=== PATIENT | female | born 1975 | race African-American/Black ===

== ENCOUNTER 2024-04-14 12:17 | Inpatient (IN) | payer MEDICAID ==
[~2024-04-14] VITALS: Ht 167.6 cm; Wt 50.3 kg
[2024-04-14] VITALS (13 sets, daily range): BP systolic 86–101; BP diastolic 51–80; TEMP 97.6–99; O2SAT 99–100
[2024-04-14] MEDS: IV NS 0.9% 1,000 ML BAG IV ONE (12:39)
[2024-04-14 13:18] LABS: LYMPHOCYTES # (AUTO) 0.6 K/uL (0.8-4.8); MEAN CORPUSCULAR HEMOGLOBIN 14 PG (26.0-33.0); MONOCYTES # (AUTO) 0.2 K/uL (0.1-1.30); NEUTROPHILS # (AUTO) 1.5 K/uL (1.8-8.9); WHITE BLOOD COUNT (AUTO) 2.4 K/uL (4.3-11.0)
[2024-04-14] MEDS ORDERED: DOCU100T2 PO (13:20)
[2024-04-14] MEDS ORDERED: MULT-213 PO (13:20)
[2024-04-14] MEDS ORDERED: ACET-868 PO (13:20)
[2024-04-14] MEDS ORDERED: BISA10SU11 RC (13:20)
[2024-04-14] MEDS ORDERED: NA P133E RC (13:20)
[2024-04-14] MEDS ORDERED: ACET-2030 PO (13:20)
[2024-04-14] MEDS ORDERED: GABA-532 PO (13:20)
[2024-04-14] MEDS ORDERED: SENN-261 PO (13:20)
[2024-04-14] MEDS ORDERED: MAGN400O6 PO (13:20)
[2024-04-14 13:22] LABS: BASOPHILS % (AUTO) 1.1 % (0.0-2.0); EOSINOPHILS % (AUTO) 1.5 % (0.0-6.0); LYMPHOCYTES % (AUTO) 24.9 % (20.0-44.0); MEAN CORPUSCULAR HGB CONC 26 g/dl (31.0-36.0); MEAN CORPUSCULAR VOLUME 54 fL (82-100); MONOCYTES % (AUTO) 8.6 % (2.0-12.0); NEUTROPHILS % (AUTO) 63.9 % (43.0-81.0); PLATELET COUNT (AUTO) 314 K/uL (150-450); RED BLOOD CELL COUNT(AUTO) 2.01 MIL/uL (4.0-5.2); RED CELL DISTRIBUTION WIDTH 21.6 % (11.5-15.0)
[2024-04-14 13:25] LABS: HEMOGLOBIN 2.9 g/dL (11.5-14.8)
[2024-04-14 13:26] LABS: HEMATOCRIT 11 % (33-45)
[2024-04-14 13:30] LABS: INR 0.97 (0.91-1.10)
[2024-04-14 13:31] LABS: ALBUMIN 2.9 g/dL (3.4-5.0); BILIRUBIN,DIRECT 0.1 mg/dL (0.0-0.2); BILIRUBIN,TOTAL 0.3 mg/dL (0.2-1.0); CALCIUM, SERUM 8.5 mg/dL (8.5-10.1); CREATININE 0.6 mg/dL (0.6-1.3); POTASSIUM 3.5 mmol/L (3.5-5.1); TOTAL PROTEIN, SERUM 6.8 g/dL (6.4-8.2)
[2024-04-14 13:32] LABS: PARTIAL THROMBOPLASTIN TIME 18.6 SEC (24.3-34.3)
[2024-04-14 13:51] LABS: ANISOCYTOSIS 1+; BASOPHILS % (MANUAL) 0 % (0.0-2.0); EOSINOPHILS % (MANUAL) 2 % (0-4); HYPOCHROMASIA 3+; LYMPHOCYTES % (MANUAL) 28 % (16-48); MONOCYTES % (MANUAL) 4 % (0-11.0); NEUTROPHILS % (MANUAL) 66 (42-76); OVALOCYTES 1+; PLATELET ESTIMATE ADEQUATE
[2024-04-14] MEDS ORDERED: MAGNESIUM HYDROXIDE 30 ML UDC PO PRN (14:00)
[2024-04-14] MEDS ORDERED: MAG HYDROX/AL HYDROX/SIMETH 30 ML UDC PO PRN (14:00)
[2024-04-14] MEDS ORDERED: ONDANSETRON HCL/PF 4 MG/2 ML VIAL IVP PRN (14:00)
[2024-04-14] MEDS ORDERED: ACETAMINOPHEN 325 MG TABLET PO PRN (14:00)
[2024-04-14] MEDS ORDERED: Z GUARD REMEDY 4 OZ OINT TP PRN (17:00)
[2024-04-14] MEDS: GABAPENTIN 100 MG CAPSULE PO SCH (17:00)
[2024-04-14] MEDS: DOCUSATE SODIUM 100 MG CAPSULE PO SCH (17:00)
[2024-04-14] MEDS ORDERED: NOREPINEPHRINE 8 MG in IV D5W 242 ML IV PRN (19:00)
[2024-04-14] MEDS ORDERED: GABAPENTIN 100 MG CAPSULE ONE (19:27)
[2024-04-14] MEDS ORDERED: DOCUSATE SODIUM 100 MG CAPSULE PO ONE (19:27)
[2024-04-14] MEDS ORDERED: MULTIVIT W/MINERALS 1 TAB TABLET ONE (19:34)
[2024-04-14] MEDS: MULTIVIT W/MINERALS 1 TAB TABLET PO SCH (19:38)
[2024-04-14 20:20] LABS: HEMOGLOBIN 4.5 g/dL (11.5-14.8)
[2024-04-14] MEDS: IV NS 0.9% 1,000 ML IV PRN (20:59)
[2024-04-15] VITALS (28 sets, daily range): BP systolic 90–117; BP diastolic 49–89; TEMP 97.2–98.2; O2SAT 100
[2024-04-15 06:36] LABS: BASOPHILS % (AUTO) 1.2 % (0.0-2.0); EOSINOPHILS % (AUTO) 1.4 % (0.0-6.0); HEMATOCRIT 23 % (33-45); HEMOGLOBIN 7.4 g/dL (11.5-14.8); LYMPHOCYTES # (AUTO) 0.6 K/uL (0.8-4.8); LYMPHOCYTES % (AUTO) 20.6 % (20.0-44.0); MEAN CORPUSCULAR HEMOGLOBIN 23 PG (26.0-33.0); MEAN CORPUSCULAR HGB CONC 32 g/dl (31.0-36.0); MEAN CORPUSCULAR VOLUME 71 fL (82-100); MONOCYTES # (AUTO) 0.3 K/uL (0.1-1.30); MONOCYTES % (AUTO) 9.3 % (2.0-12.0); NEUTROPHILS # (AUTO) 2.1 K/uL (1.8-8.9); NEUTROPHILS % (AUTO) 67.5 % (43.0-81.0); PLATELET COUNT (AUTO) 263 K/uL (150-450); RED CELL DISTRIBUTION WIDTH 31.6 % (11.5-15.0); WHITE BLOOD COUNT (AUTO) 3.1 K/uL (4.3-11.0)
[2024-04-15 07:07] LABS: ALBUMIN 2.3 g/dL (3.4-5.0); BILIRUBIN,TOTAL 0.8 mg/dL (0.2-1.0); CREATININE 0.4 mg/dL (0.6-1.3); MAGNESIUM 1.6 mg/dL (1.8-2.4); PHOSPHORUS 3.4 mg/dL (2.5-4.9); POTASSIUM 3.4 mmol/L (3.5-5.1); TOTAL PROTEIN, SERUM 5.9 g/dL (6.4-8.2)
[2024-04-15] MEDS: PANTOPRAZOLE 40 MG VIAL IV SCH (08:42)
[2024-04-15] MEDS: MAGNESIUM OXIDE 400 MG TABLET PO ONE (09:34)
[2024-04-15] MEDS: POTASSIUM CHLORIDE 20 MEQ TAB.PRT.SR PO SCH (09:34)
[2024-04-15 11:03] LABS: FERRITIN 4 ng/mL (8-388); IRON, SERUM 11 ug/dl (50-175)
[2024-04-15 15:33] LABS: PREGNANCY TEST URINE QUAL NEGATIVE (NEGATIVE)
[2024-04-15 15:45] LABS: APPEARANCE,URINE CLEAR (CLEAR); BILIRUBIN,URINE NEGATIVE (NEGATIVE); BLOOD, URINE 2+ Ery/uL (NEGATIVE); COLOR,URINE YELLOW (YELLOW); KETONES,URINE NEGATIVE (NEGATIVE); LEUKOCYTE ESTERASE ,URINE TRACE (NEGATIVE); NITRITE, URINE NEGATIVE (NEGATIVE); PROTEIN,URINE 2+ mg/dl (NEGATIVE); UGLUCOSE NEGATIVE (NEGATIVE); UROBILINOGEN,URINE 0.2 EU/dL (0.2)
[2024-04-15 16:23] LABS: ADD URINE CULTURE NO; BACTERIA,URINE 1+ /HPF (None Seen); MUCUS,URINE Rare /LPF (None Seen); SQUAMOUS EPITHELIAL CELL,UR 0-2 /HPF (None Seen)
[2024-04-15] MEDS ORDERED: DOCUSATE SODIUM 100 MG CAPSULE PO SCH (17:00)
[2024-04-15] MEDS: SOD FERRIC GLUC 125 MG in IV NS 0.9% 100 ML IV SCH (21:06)
[2024-04-15] MEDS: SENNOSIDES 8.6 MG TABLET PO SCH (21:09)
[2024-04-16 07:17] LABS: EOSINOPHILS # (AUTO) 0.1 K/uL (0.0-0.7); EOSINOPHILS % (AUTO) 1.8 % (0.0-6.0); HEMATOCRIT 26 % (33-45); HEMOGLOBIN 8.1 g/dL (11.5-14.8); LYMPHOCYTES # (AUTO) 0.7 K/uL (0.8-4.8); LYMPHOCYTES % (AUTO) 18.2 % (20.0-44.0); MEAN CORPUSCULAR HEMOGLOBIN 22 PG (26.0-33.0); MEAN CORPUSCULAR HGB CONC 31 g/dl (31.0-36.0); MEAN CORPUSCULAR VOLUME 71 fL (82-100); MONOCYTES # (AUTO) 0.4 K/uL (0.1-1.30); MONOCYTES % (AUTO) 10.3 % (2.0-12.0); NEUTROPHILS # (AUTO) 2.7 K/uL (1.8-8.9); NEUTROPHILS % (AUTO) 68.7 % (43.0-81.0); PLATELET COUNT (AUTO) 296 K/uL (150-450); RED BLOOD CELL COUNT(AUTO) 3.67 MIL/uL (4.0-5.2); RED CELL DISTRIBUTION WIDTH 32.3 % (11.5-15.0); WHITE BLOOD COUNT (AUTO) 3.9 K/uL (4.3-11.0)
[2024-04-16 07:36] LABS: CALCIUM, SERUM 8.1 mg/dL (8.5-10.1); CREATININE 0.5 mg/dL (0.6-1.3); MAGNESIUM 1.6 mg/dL (1.8-2.4); POTASSIUM 3.6 mmol/L (3.5-5.1)
[2024-04-16 08:00] VITALS: BP 99/66; TEMP 97.9; O2SAT 100
[2024-04-16] MEDS: PANTOPRAZOLE 40 MG TABLET.DR PO SCH (08:28)
[2024-04-16] MEDS ORDERED: FERR220E2 PO (10:18)
[2024-04-16] MEDS: MAGNESIUM OXIDE 400 MG TABLET PO ONE (10:22)
[2024-04-16] MEDS ORDERED: IV NS 0.9% 250 ML IV ONE (14:48)
[2024-04-16] MEDS ORDERED: IOHEXOL-300 100 ML VIAL IV ONE (14:48)
[2024-04-16 16:24] VITALS: BP 118/62; TEMP 98.6; O2SAT 99
[2024-04-18 10:08] LABS: CANCER AG, 125 10.8 U/mL (0.0-38.1)
== END 2024-04-16 16:25 | DRG 663 ==
LOC: ER 12:37 → TRANSITION 18:40 → ICU 19:25 → MED 04-15 18:29
PROVIDERS: ADMIT Nurse Practitioner Acute Care; ATTEND Nurse Practitioner Acute Care
PROC: 30233N1 Transfusion of Nonautologous Red Blood Cells into Peripheral Vein, Percutaneous Approach (ICD-10-PCS; principal; 2024-04-14)
DX: D64.9 Anemia, unspecified (principal); G93.41 Metabolic encephalopathy; I42.9 Cardiomyopathy, unspecified; E44.0 Moderate protein-calorie malnutrition; I50.9 Heart failure, unspecified; N13.30 Unspecified hydronephrosis; D70.9 Neutropenia, unspecified; E88.09 Other disorders of plasma-protein metabolism, not elsewhere classified; D50.9 Iron deficiency anemia, unspecified; F84.5 Asperger's syndrome; D25.9 Leiomyoma of uterus, unspecified; K76.0 Fatty (change of) liver, not elsewhere classified; Z79.899 Other long term (current) drug therapy; R62.50 Unspecified lack of expected normal physiological development in childhood
CPT/HCPCS: 36415; 71045-TC; 76700-TC; 76856-TC; 80048-TC; 80053-TC; 80076-TC; 81001; 82378; 82607-TC; 82728-TC; 83540-TC; 83735-TC; 84100-TC; 84703-TC; 85025-TC; 85027-TC; 85045-TC; 85385-TC; 85730-TC; 86304; 86850-TC; 87040-TC; 87081-TC; A4223; G0378; J2470; J2916; J7030; J7040; J7042; J7050; J7060; P9016; Q9967